=== PATIENT | male | born 1955 | race Caucasian/White ===

== ENCOUNTER 2024-09-28 13:39 | Outpatient (REF) | payer MEDICARE, MEDICAID, SELFPAY ==
[2024-09-29 18:13] LABS: Lyme Abs Screen <0.90 index
== END 2024-09-28 13:40 | disposition home or self-care (01) ==
LOC: HO.LAB 13:39
PROVIDERS: Visit Provider Psychiatry & Neurology Neurology
DX: M47.12 Other spondylosis with myelopathy, cervical region (principal)
CPT/HCPCS: 36415; 82550; 86617; 86618